=== PATIENT | male | born 1945 | race Caucasian/White ===

== ENCOUNTER 2021-09-02 00:22 | Inpatient (IN) | payer MEDICARE ==
[~2021-09-02] VITALS: Ht 185.4 cm; Wt 82.5 kg
[2021-09-02] VITALS (14 sets, daily range): BP systolic 90–158; BP diastolic 46–83
--- NOTE | 2021-09-02 00:46 | RAD ---
CT HEAD AND C-SPINE WO History: Reason: CODE STROKE, fall, on blood thinner / Spl. Instructions: / History: Comparison: None. Technique: Noncontrast CT imaging was performed of the head and cervical spine. Coronal and sagittal reconstructions were performed. Exposure: One or more of the following individualized dose reduction techniques were utilized for thi s examination: 1. Automated exposure control 2. Adjustment of the mA and/or kV according to patient size 3. Use of iterative reconstruction technique. Findings: Head CT: No intracranial hemorrhage. No mass effect. No hydrocephalus. Mild brain parenchymal volume loss. Moderate foci of decreased attenuation within the hemispheric whi te matter, most often due to chronic microvascular ischemia. Imaged orbits are unremarkable. Imaged paranasal sinuses and mastoid air cells are clear. No acute ca lvarial fracture. Cervical spine CT: Grade 1 anterolisthesis C4 on C5. No acute fracture. Chronic appearing T1 right superior endplate com pression deformity. Moderate degenerative disc changes most prominent C4-C5, C5-C6 and C6-C7. Facet arthropathy. C2-C3 ri ght facet fusion. C1-C2 degenerative changes with posterior pannus formation. Soft tissues unremarkable. Impression: Head CT: 1. No acute intracranial abnormality. 2. Moderate sequelae of chronic microvascular ischemia. Cervical spine CT: 1. No acute fracture or subluxation of the cervical spine. 2. Moderate multilevel cervical spondylosis. FOR INTERNAL CODING PURPOSES Critical result: Findings discussed with Dr. Rich at 09/02/2021 12:39 AM. RESULT CODE: (C) Electronically signed by: Orville Ramirez DO (09/02/2021 12:43 AM) [facility]
[2021-09-02 00:49] LABS: BASO # 0.1 x10^3/uL (0.0-0.2); BASO % 1 % (0-3); EOS # 0.2 x10^3/uL (0.0-0.7); EOS % 4 % (0-3); HEMATOCRIT 27.9 % (39.0-53.0); HEMOGLOBIN 9.5 g/dL (13.0-17.5); LYMPH # 0.6 x10^3/uL (1.0-4.8); LYMPH % 9 % (24-48); MEAN CORPUSCULAR HEMOGLOBIN 32 pg (25-35); MEAN CORPUSCULAR HGB CONC 34 g/dL (31-37); MEAN CORPUSCULAR VOLUME 94 fL (79-100); MONO # 0.5 x10^3/uL (0.0-1.1); MONO % 7 % (0-9); NEUT # 5.3 x10^3/uL (1.8-7.7); NEUT % 79 % (31-73); PLATELET COUNT 209 x10^3/uL (140-400); RED BLOOD COUNT 2.97 x10^6/uL (4.30-5.70); RED CELL DISTRIBUTION WIDTH 14.2 % (11.5-14.5); WHITE BLOOD COUNT 6.7 x10^3/uL (4.0-11.0)
--- NOTE | 2021-09-02 00:51 | EKG ---
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
[2021-09-02 00:59] LABS: CALCIUM 8.7 mg/dL (8.5-10.1); CREATININE 2.7 mg/dL (0.7-1.3); GFR 23.1; POTASSIUM 3.8 mmol/L (3.5-5.1)
[2021-09-02 01:00] LABS: PROTHROMBIN TIME PATIENT 13.5 SEC (11.7-14.0)
[2021-09-02] MEDS ORDERED: IV NORMAL SALINE 500ML BAG 500 ML IV ONE (01:00)
[2021-09-02 01:04] LABS: ALBUMIN 3.3 g/dL (3.4-5.0); MAGNESIUM 2.1 mg/dL (1.8-2.4); TOTAL BILIRUBIN 0.3 mg/dL (0.2-1.0); TOTAL PROTEIN 6.7 g/dL (6.4-8.2)
--- NOTE | 2021-09-02 01:07 | ED.ADGEN ---
General Adult EDM: Chief Complaint: NEURO SYMPTOMS/DEFICITS HPI: HPI: Patient is a 76 year old male coming in from home after a near syncopal episode where patient fell and struck his head. Patient states he felt lightheaded caused him to fall. Denies any chest pain, headaches or other symptoms preceding the event. Per EMS he is slow to respond but will respond to voice and seems weak. Patient has a history significant for being discharged from [facility] 08/1021 (1 day ago) after an DC with stents placed. Patient's records show he is taking clopidogrel and aspirin. Patient was also started on hydralazine and isosorbide dinitrate that he was started this evening. Review of Systems: Review of Systems: All other systems within normal limits except for as noted in the HPI Current Medications: Current Medications Medications (Trade) Dose Ordered Sig/Charles Start Time Stop Time Status Last Admin Dose Admin Acetaminophen (Tylenol) 650 mg PRN Q4HRS PRN 09/02/21 02:30 09/03/21 02:29 Dobutamine HCl/ Dextrose 250 ml @ 4.38 mls/hr 1X ONCE 09/02/21 01:00 09/04/21 10:04 Dopamine HCl/ Dextrose 250 ml @ As Directed STK-MED ONCE 09/02/21 00:38 09/02/21 00:39 DC Fentanyl Citrate (Fentanyl 2ml Vial) 50 mcg PRN Q1HR PRN 09/02/21 02:30 09/03/21 02:29 Ondansetron HCl (Zofran) 4 mg PRN Q8HRS PRN 09/02/21 02:30 09/03/21 02:29 Sodium Chloride 500 ml @ 500 mls/hr 1X ONCE 09/02/21 01:00 09/02/21 01:59 DC Allergies: Allergies: Allergies Coded Allergies Type Severity Reaction Last Updated Verified No Known Drug Allergies 09/02/21 No Physical Exam: PE: Constitutional: Well developed, well nourished, no acute distress, non-toxic appearance. [] HENT: Normocephalic, atraumatic, bilateral external ears normal, nose normal. [] Eyes: PERRLA, conjunctiva normal, no discharge. [] Neck: No rigidity, supple, no stridor. [] Cardiovascular: Regular rate and rhythm, brisk cap refill [] Lungs & Thorax: Non labored symmetric respirations, no tachypnea or respiratory distress [] Abdomen: Soft, nondistended. Skin: Warm, dry, no erythema, no rash. [] Back: Unremarkable Extremities: No deformities, range of motion grossly intact, no lower extremity edema [] Neurologic: Alert and oriented X 3, no focal deficits noted. [] Psychologic: Affect normal, judgement normal, mood normal. [] Current Patient Data: Labs: Laboratory Tests Test 09/02/21 00:30 09/02/21 00:58 White Blood Count 6.7 x10^3/uL (4.0-11.0) Red Blood Count 2.97 x10^6/uL (4.30-5.70) L Hemoglobin 9.5 g/dL (13.0-17.5) L Hematocrit 27.9 % (39.0-53.0) L Mean Corpuscular Volume 94 fL (79-100) Mean Corpuscular Hemoglobin 32 pg (25-35) Mean Corpuscular Hemoglobin Concent 34 g/dL (31-37) Red Cell Distribution Width 14.2 % (11.5-14.5) Platelet Count 209 x10^3/uL (140-400) Neutrophils (%) (Auto) 79 % (31-73) H Lymphocytes (%) (Auto) 9 % (24-48) L Monocytes (%) (Auto) 7 % (0-9) Eosinophils (%) (Auto) 4 % (0-3) H Basophils (%) (Auto) 1 % (0-3) Neutrophils # (Auto) 5.3 x10^3/uL (1.8-7.7) Lymphocytes # (Auto) 0.6 x10^3/uL (1.0-4.8) L Monocytes # (Auto) 0.5 x10^3/uL (0.0-1.1) Eosinophils # (Auto) 0.2 x10^3/uL (0.0-0.7) Basophils # (Auto) 0.1 x10^3/uL (0.0-0.2) Prothrombin Time 13.5 SEC (11.7-14.0) Prothrombin Time INR 1.0 (0.8-1.1) Sodium Level 137 mmol/L (136-145) Potassium Level 3.8 mmol/L (3.5-5.1) Chloride Level 97 mmol/L (98-107) L Carbon Dioxide Level 28 mmol/L (21-32) Anion Gap 12 (6-14) Blood Urea Nitrogen 27 mg/dL (8-26) H Creatinine 2.7 mg/dL (0.7-1.3) H Estimated GFR (Cockcroft-Gault) 23.1 BUN/Creatinine Ratio 10 (6-20) Glucose Level 289 mg/dL (70-99) H Calcium Level 8.7 mg/dL (8.5-10.1) Phosphorus Level 3.0 mg/dL (2.6-4.7) Magnesium Level 2.1 mg/dL (1.8-2.4) Total Bilirubin 0.3 mg/dL (0.2-1.0) Aspartate Amino Transferase (AST) 11 U/L (15-37) L Alanine Aminotransferase (ALT) 19 U/L (16-63) Alkaline Phosphatase 65 U/L (46-116) Troponin I Quantitative 0.024 ng/mL (0.000-0.055) VY-Sva-G-Type Natriuretic Peptide > 69296 pg/mL (0-449) H Total Protein 6.7 g/dL (6.4-8.2) Albumin 3.3 g/dL (3.4-5.0) L Albumin/Globulin Ratio 1.0 (1.0-1.7) SARS-CoV-2 Antigen (Rapid) Negative (NEGATIVE) Laboratory Tests 09/02/21 00:30 Laboratory Tests 09/02/21 00:30 EKG: EK: Heart rate 60 beats minute, intraventricular block, diffuse T wave inversion in precordial lead 0040: Heart rate 60 bpm there is no changes from previous EKG 0053: Heart rate 7 bpm no changes from previous EKG [] Heart Score: C/O Chest Pain: No HEART Score for Chest Pain: HEART Score for Chest Pain Response (Comments) Value History Moderately Suspicious 1 ECG Nonspecific Repolarizatio 1 Age > 65 2 Risk Factors >3 Risk Factors or Hx CAD 2 Troponin >1-<3x Normal Limit 1 Total 7 Risk Factors: Risk Factors: DM, Current or recent (<one month) smoker, HTN, HLP, family history of CAD, obesity. Risk Scores: Score 0 - 3: 2.5% MACE over next 6 weeks - Discharge Home Score 4 - 6: 20.3% MACE over next 6 weeks - Admit for Clinical Observation Score 7 - 10: 72.7% MACE over next 6 weeks - Early Invasive Strategies Radiology/Procedures: Radiology/Procedures: Bedside ultrasound shows thickened myocardial reynoso with decreased squeeze. No pericardial effusion. Valves appear to be functioning normally. Exam limited by ultrasound image quality [address] [id number] IMAGING REPORT Signed PATIENT: CONNIE ABBASI ACCOUNT: [id number] : 1945 LOCATION: ER AGE: 76 SEX: M EXAM STATUS: PRE ER ORD. PHYSICIAN: TACOS BOBO MD REASON: chf PROCEDURE: CHEST AP ONLY XR CHEST 1V History: Reason: chf / Spl. Instructions: / History: Comparison: None. Findings: Mild interstitial thickening. No pleural effusion. No pneumothorax. Right-sided central line with tip projecting over the right atrium. Prior median sternotomy. Enlarged cardiac size. Impression: 1. Mild diffuse interstitial thickening, may relate to chronic interstitial changes although pulmonary edema or infection is possible. Electronically signed by: Orville Ramirez DO (09/02/2021 1:30 AM) [facility] DICTATED and SIGNED BY: ORVILLE RAMIREZ DO DATE: 09/02/21 [id number] [id number] IMAGING REPORT Signed PATIENT: CONNIE ABBASI ACCOUNT: [id number] : 1945 LOCATION: ER AGE: 76 SEX: M EXAM STATUS: PRE ER ORD. PHYSICIAN: TACOS BOBO MD REASON: CODE STROKE, fall, on blood thinner PROCEDURE: CT HEAD AND CERVICAL SPINE WO CT HEAD AND C-SPINE WO History: Reason: CODE STROKE, fall, on blood thinner / Spl. Instructions: / History: Comparison: None. Technique: Noncontrast CT imaging was performed of the head and cervical spine. Coronal and sagittal reconstructions were performed. Exposure: One or more of the following individualized dose reduction techniques were utilized for this examination: 1. Automated exposure control 2. Adjustment of the mA and/or kV according to patient size 3. Use of iterative reconstruction technique. Findings: Head CT: No intracranial hemorrhage. No mass effect. No hydrocephalus. Mild brain parenchymal volume loss. Moderate foci of decreased attenuation wi thin the hemispheric white matter, most often due to chronic microvascular ischemia. Imaged orbits are unremarkable. Imaged paranasal sinuses and mastoid air cells are clear. No acute calvarial fracture. Cervical spine CT: Grade 1 anterolisthesis C4 on C5. No acute fracture. Chronic appearing T1 right superior endplate compression deformity. Moderate degenerative disc changes most prominent C4-C5, C5-C6 and C6-C7. Facet arthropathy. C2-C3 right facet fusion. C1-C2 degenerative changes with posterior pannus formation. Soft tissues unremarkable. Impression: Head CT: 1. No acute intracranial abnormality. 2. Moderate sequelae of chronic microvascular ischemia. Cervical spine CT: 1. No acute fracture or subluxation of the cervical spine. 2. Moderate multilevel cervical spondylosis. FOR INTERNAL CODING PURPOSES Critical result: Findings discussed with Dr. Bobo at 09/02/2021 12:39 AM. RESULT CODE: (C) Electronically signed by: Orville Ramirez DO (09/02/2021 12:43 AM) [facility] DICTATED and SIGNED BY: ORVILLE RAMIREZ DO DATE: 09/02/21 [id number] Impression: Total critical care time: 55 The time involved in the performance of separately reportable/billable procedures was not counted toward critical care time. Due to a high probability of clinically significant, life-threatening deterioration the patient required a high level of care to intervene emergently and I personally spent this critical time directly and personally managing the patient. The critical care time included obtaining a history, examination of the patient, assessment of vital signs, ordering and review of studies, arranging urgent treatment with development of a management plan, evaluation of patient's response to treatment, frequent reassessment, and discussions with other providers and/or family members. Course & Med Decision Making: Course & Med Decision Making Pertinent Labs and Imaging studies reviewed. (See chart for details) Initial CT head negative and c-collar cleared. Patient's blood pressure 70/43. Bedside ultrasound concerning for exacerbation of heart failure and cardiogenic shock especially in setting of recent DC. However patient symptoms could also be due to his recent initiation of hemodialysis and having been dialyzed prior to leaving the hospital in the afternoon, patient took his newly prescribed hydralazine and isosorbide little over an hour prior to the near syncopal episode and fall. Started on dobutamine titrated up to a MAP of greater than 65. Will admit to ICU for further evaluation of heart failure versus overmedication and volume depletion causing hypotension. Patient's mental status improved with blood pressure correction Patient requesting to go to [facility], discussion with the transfer line there are no ICU beds available. Discussed patient staying in his hospital, patient's reluctantly agreed. 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 [] Dragon Disclaimer: Dragon Disclaimer: This electronic medical record was generated, in whole or in part, using a voice recognition dictation system. Departure Departure Impression: Primary Impression: Cardiogenic shock Disposition: ADMITTED INPATIENT Admitting Physician: MARTY Condition: CRITICAL Referrals: JOSÉ MIGUEL CEJA NP (PCP) TACOS BOBO MD Sep 02, 2021 01:07
--- NOTE | 2021-09-02 01:32 | RAD ---
XR CHEST 1V History: Reason: chf / Spl. Instructions: / History: Comparison: None. Findings: Mild interstitial thickening. No pleural effusion. No pneumothorax. Right-sided central line with tip projecting over the right atrium. Prior median sternotomy. Enlarged cardiac size. Impression: 1. Mild diffuse interstitial thickening, may relate to chronic interstitial changes although pulmona ry edema or infection is possible. Electronically signed by: Orville Ramirez DO (09/02/2021 1:30 AM) [facility]
[2021-09-02] MEDS ORDERED: ACETAMINOPHEN 325 MG TABLET. PO PRN (02:30)
[2021-09-02] MEDS ORDERED: ONDANSETRON PF 4 MG/2 ML VIAL. IVP PRN (02:30)
[2021-09-02] MEDS ORDERED: fentaNYL PF VIAL 100 MCG/2 ML VIAL IVP PRN (02:30)
--- NOTE | 2021-09-02 04:08 | EKG ---
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
--- NOTE | 2021-09-02 04:09 | EKG ---
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
--- NOTE | 2021-09-02 04:18 | NUR ---
admitt- cardiogenic shock- past just discharged from [facility] on Wednesday-- [place]/P [place] with Stents. new onset of renal failure. started dialysis on . patient was at home felt dizzy. Fell hit head. CT neg. BP low dobutamine started Unable to complete admission. Patient very drowsy. Unable to answer questions
[2021-09-02] MEDS ORDERED: HYDR-2868 PO (04:30)
[2021-09-02] MEDS ORDERED: ISOS10TA2 PO (04:30)
[2021-09-02] MEDS ORDERED: CARV3.123 PO (04:30)
[2021-09-02] MEDS ORDERED: CARV6.253 PO (04:30)
[2021-09-02] MEDS ORDERED: CARV12.53 PO (04:30)
[2021-09-02] MEDS ORDERED: FURO20TA3 PO (04:30)
[2021-09-02] MEDS ORDERED: ASPI-630 PO (04:32)
[2021-09-02] MEDS ORDERED: ATOR40TA59 PO (04:35)
[2021-09-02] MEDS ORDERED: OXYB5TAB10 PO (04:35)
[2021-09-02] MEDS ORDERED: BUME1TAB3 PO (08:36)
[2021-09-02] MEDS ORDERED: CLOP75TA57 PO (08:36)
[2021-09-02] MEDS ORDERED: CARVEDILOL 3.125 MG TABLET. PO SCH (09:00)
[2021-09-02] MEDS ORDERED: hydrALAZINE 25 MG TABLET PO SCH (09:00)
[2021-09-02] MEDS ORDERED: ISOSORBIDE DINITRATE 10 MG TABLET. PO SCH (09:00)
--- NOTE | 2021-09-02 09:17 | PDOC2 ---
DIANNA CHAPA JUSTOWRITER OPERATOR 09/02/21 0917: CARDIAC CONSULT DATE OF CONSULT Date of Consult DATE: 09/02/21 TIME: 09:13 REASON FOR CONSULT Reason for Consult: cardiogenic shock REFERRING PHYSICIAN Referring Physician: Dr. Rich SOURCE Source: Chart review, Patient HISTORY OF PRESENT ILLNESS HISTORY OF PRESENT ILLNESS This is a 76 yo male who presented secondary to near syncopal episode. Patient has been in and out of [facility] since August 14. Was initially discharged following PCI/stent placement and renal failure requiring initiation of HD, but then returned due to shortness of breath, CHF. Fluid was offloaded with HD. Patient was discharge home yesterday afternoon following HD. Last night, he was sitting in his chair watching television. He got up to ambulate to the bathroom and began feeling lightheaded and subsequently fell striking his head. There was no LOC. EMS was called. Blood pressure noted to be low. Dobutamine infusion was initiated in the ED. Patient follows closely with Dr. Coker at [facility]. Transfer team was contacted, but no beds were available for transfer. was reluctant for admission to the hospital, but eventually agreed. Dr. Beach contacted Dr. Coker. Patient recently noted with severs cardiomyopathy with an EF of 20-25% and new LBBB. He underwent PCI/stent placement 08/20/[address] Coker. He has had difficulty tolerated optimized medic al therapy due to hypotension and recent initiation of hemodialysis. PAST MEDICAL HISTORY Cardiovascular: CAD, CHF, HTN, Hyperlipidemia, Other (LBBB) GI: GERD Musculoskeletal: Osteoarthritis Renal/: Chronic renal failure Endocrine: Diabetes PAST SURGICAL HISTORY Past Surgical History: CABG FAMILY HISTORY Family History: Heart Disease, Hypertension SOCIAL HISTORY Smoke: No ALCOHOL: none Drugs: None Lives: with Family CURRENT MEDICATIONS CURRENT MEDICATIONS Current Medications Medications (Trade) Dose Ordered Sig/Charles Route PRN Reason Start Time Stop Time Status Last Admin Dose Admin Dobutamine HCl/ Dextrose 250 ml @ 4.38 mls/hr 1X ONCE IV 09/02/21 01:00 09/04/21 10:04 09/02/21 00:51 Sodium Chloride 500 ml @ 500 mls/hr 1X ONCE IV 09/02/21 01:00 09/02/21 01:59 DC 09/02/21 00:30 ALLERGIES ALLERGIES: Coded Allergies: hydrocodone (Verified Allergy, Intermediate, 09/02/21) oxycodone (Verified Allergy, Intermediate, 09/02/21) ROS Review of System 14 point ROS conducted with pertinent positives noted above in HPI PHYSICAL EXAM General: Alert, Oriented X3, Cooperative, No acute distress HEENT: Atraumatic, Mucous membr. moist/pink Lungs: Other (CTA ) Heart: Regular rate, Other (LBBB) Abdomen: Soft, No tenderness Extremities: No edema, Normal pulses Skin: No significant lesion Neuro: Normal speech, Sensation intact, Other (forgetful ) Psych/Mental Status: Mental status NL, Mood NL MUSCULOSKELETAL: Osteoarthritic changes both hands VITALS/I&O VITALS/I&O: Vital Signs Date Time Temp Pulse Resp B/P (MAP) Pulse Ox O2 Delivery O2 Flow Rate FiO2 09/02/21 08:00 Room Air 09/02/21 08:00 97.9 72 22 135/65 100 97.9 I & O 09/01/21 09/01/21 09/02/21 15:00 23:00 07:00 Intake Total 500 ml Output Total 0 ml Balance 500 ml LABS Lab: Laboratory Tests Test 09/02/21 00:30 09/02/21 00:58 09/02/21 05:50 White Blood Count 6.7 x10^3/uL (4.0-11.0) Red Blood Count 2.97 x10^6/uL (4.30-5.70) L Hemoglobin 9.5 g/dL (13.0-17.5) L Hematocrit 27.9 % (39.0-53.0) L Mean Corpuscular Volume 94 fL (79-100) Mean Corpuscular Hemoglobin 32 pg (25-35) Mean Corpuscular Hemoglobin Concent 34 g/dL (31-37) Red Cell Distribution Width 14.2 % (11.5-14.5) Platelet Count 209 x10^3/uL (140-400) Neutrophils (%) (Auto) 79 % (31-73) H Lymphocytes (%) (Auto) 9 % (24-48) L Monocytes (%) (Auto) 7 % (0-9) Eosinophils (%) (Auto) 4 % (0-3) H Basophils (%) (Auto) 1 % (0-3) Neutrophils # (Auto) 5.3 x10^3/uL (1.8-7.7) Lymphocytes # (Auto) 0.6 x10^3/uL (1.0-4.8) L Monocytes # (Auto) 0.5 x10^3/uL (0.0-1.1) Eosinophils # (Auto) 0.2 x10^3/uL (0.0-0.7) Basophils # (Auto) 0.1 x10^3/uL (0.0-0.2) Prothrombin Time 13.5 SEC (11.7-14.0) Prothrombin Time INR 1.0 (0.8-1.1) Sodium Level 137 mmol/L (136-145) Potassium Level 3.8 mmol/L (3.5-5.1) Chloride Level 97 mmol/L (98-107) L Carbon Dioxide Level 28 mmol/L (21-32) Anion Gap 12 (6-14) Blood Urea Nitrogen 27 mg/dL (8-26) H Creatinine 2.7 mg/dL (0.7-1.3) H Estimated GFR (Cockcroft-Gault) 23.1 BUN/Creatinine Ratio 10 (6-20) Glucose Level 289 mg/dL (70-99) H Calcium Level 8.7 mg/dL (8.5-10.1) Phosphorus Level 3.0 mg/dL (2.6-4.7) Magnesium Level 2.1 mg/dL (1.8-2.4) Total Bilirubin 0.3 mg/dL (0.2-1.0) Aspartate Amino Transferase (AST) 11 U/L (15-37) L Alanine Aminotransferase (ALT) 19 U/L (16-63) Alkaline Phosphatase 65 U/L (46-116) Troponin I Quantitative 0.024 ng/mL (0.000-0.055) 0.017 ng/mL (0.000-0.055) MT-Lei-B-Type Natriuretic Peptide > 13217 pg/mL (0-449) H Total Protein 6.7 g/dL (6.4-8.2) Albumin 3.3 g/dL (3.4-5.0) L Albumin/Globulin Ratio 1.0 (1.0-1.7) SARS-CoV-2 Antigen (Rapid) Negative (NEGATIVE) Lactic Acid Level 0.8 mmol/L (0.4-2.0) Laboratory Tests 09/02/21 00:30 Laboratory Tests 09/02/21 00:30 ASSESSMENT/PLAN ASSESSMENT/PLAN 1. Near syncope; most probably secondary to hypotension 2. Hypotension; now adequate. On dobutamine. antiHTN held 3. CAD s/p CABG 2016 and PCI/stent 2 weeks ago at [facility]. Follows with Dr. Coker 4. Acute on chronic systolic CHF; appears compensated 5. Cardiomyopathy; LVEF reportedly 20-25% 6. Hyperlipidemia; statin 7. Diabetes, II 8. ESRD recently initiated on HD 9. LBBB Recommendations Resume secondary prevention Discontinue Coreg, hydralazine, and Imdur. Titrate off Dobutamine as blood pressure is now adequate Start low Toprol for HF optimization as BP allows Will arranged for LifeVest for prevention of SCD Outpatient echo to reassess LVEF and need for AICD implantation for primary prevention CASPER BEACH MD 09/03/21 1546: CARDIAC CONSULT ASSESSMENT/PLAN ASSESSMENT/PLAN Late entry for 09/02/2021 Patient seen and examined. Agree with above nurse practitioner note. Case discussed with outside [employer] team member DIANNA CHAPA APRN Sep 02, 2021 09:17 CASPER BEACH MD Sep 03, 2021 15:46
--- NOTE | 2021-09-02 10:21 | PDOC1 ---
History and Physical Date of Admission Date of Admission DATE: 09/02/21 TIME: 10:14 Source Source: Chart review, Patient History of Present Illness History of Present Illness MR. Flores, is a 76 year old male, recent DC from [facility]. Was treated for acute CAD, [place], and started on dialysis. He was also started on New BP meds, started on IMdur and coreg dose increased. Stents were placed Last night, he was very weak, pre-syncopal, asked his for help with trying to ambualte, and could not, he then worsened and had a near syncopal episode, fell and struck his head. Denies any chest pain, headaches or other symptoms preceding the event. Prior chest pain from [place] is not present, his back hurt from falling, and it is better today. Patient's records show he is taking clopidogrel and aspirin. Past Medical History Cardiovascular: CAD, HTN, Hyperlipidemia Psych: No pertinent hx Renal/: Chronic renal failure Endocrine: Diabetes Past Surgical History Past Surgical History: CABG Family History Family History: Coronary Artery Disease, Other Social History Smoke: Quit ALCOHOL: none Current Problem List Problem List Problems Medical Problems: (1) Cardiogenic shock Status: Acute Current Medications Current Medications Current Medications Dopamine HCl/ Dextrose 250 ml @ As Directed STK-MED ONCE IV ; Start 09/02/21 at 00:38; Stop 09/02/21 at 00:39; Status DC Dobutamine HCl/ Dextrose 250 ml @ 4.38 mls/hr 1X ONCE IV Last administered on 09/02/21at 00:51; Start 09/02/21 at 01:00; Stop 09/04/21 at 10:04 Sodium Chloride 500 ml @ 500 mls/hr 1X ONCE IV Last administered on 09/02/21at 00:30; Start 09/02/21 at 01:00; Stop 09/02/21 at 01:59; Status DC Ondansetron HCl (Zofran) 4 mg PRN Q8HRS PRN IVP NAUSEA/VOMITING 1st choice; Start 09/02/21 at 02:30; Stop 09/03/21 at 02:29 Fentanyl Citrate (Fentanyl 2ml Vial) 50 mcg PRN Q1HR PRN IVP SEVERE PAIN 7-10; Start 09/02/21 at 02:30; Stop 09/03/21 at 02:29 Acetaminophen (Tylenol) 650 mg PRN Q4HRS PRN PO FEVER > 100.3'F; Start 09/02/21 at 02:30; Stop 09/03/21 at 02:29 Aspirin (Aspirin Chewable) 81 mg DAILY PO ; Start 09/02/21 at 09:00 Atorvastatin Calcium (Lipitor) 40 mg DAILY PO ; Start 09/02/21 at 09:00 Carvedilol (Coreg) 3.125 mg BID PO ; Start 09/02/21 at 09:00; Stop 09/02/21 at 09:18; Status DC Hydralazine HCl (Apresoline) 25 mg TID PO ; Start 09/02/21 at 09:00; Stop 09/02/21 at 09:18; Status DC Isosorbide Dinitrate (Isordil) 10 mg [id number] PO ; Start 09/02/21 at 09:00; Stop 09/02/21 at 09:18; Status DC Oxybutynin Chloride (Ditropan) 5 mg BID PO ; Start 09/02/21 at 09:00 Active Scripts Active Reported Bumetanide 1 Mg Tablet 1 Mg PO BID Plavix (Clopidogrel Bisulfate) 75 Mg Tablet 75 Mg PO DAILY Atorvastatin Calcium 40 Mg Tablet 1 Tab PO DAILY Oxybutynin Chloride 5 Mg Tablet 1 Tab PO BID Aspirin 81 Mg Tab.chew 1 Tab PO DAILY Isosorbide Dinitrate 10 Mg Tablet 1 Tab PO TID Hydralazine Hcl 25 Mg Tablet 1 Tab PO TID Carvedilol 12.5 Mg Tablet 1 Tab PO BID Allergies Allergies: Uncoded Allergies: UNABLE TO OBTAIN (Allergy, Unknown, 09/02/21) ROS General: YES: Chills, Fatigue, Malaise PSYCHOLOGICAL ROS: YES: Disorientation; No: Anxiety, Behavioral Disorder, Concentration difficultie, Decreased libido, Depression, Hallucinations, Hostility, Irritablity, Memory difficulties, Mood Swings, Obsessive thoughts, Physical abuse, Sexual abuse, Sleep disturbances, Suicidal ideation, Other Eyes: No Blurry vision, No Decreased vision, No Double vision, No Dry eyes, No Excessive tearing, No Eye Pain, No Itchy Eyes, No Loss of vision, No Photophobia, No Scotomata, No Uses contacts, No Uses glasses, No Other HEENT: No: Heacaches, Visual Changes, Hearing change, Nasal congestion, Nasal discharge, Oral lesions, Sinus pain, Sore Throat, Epistaxis, Sneezing, Snoring, Tinnitus, Vertigo, Vocal changes, Other Respiratory: No: Cough, Hemoptysis, Orthopnea, Pleuritic Pain, Shortness of breath, SOB with excertion, Sputum Changes, Stridor, Tachypnea, Wheezing, Other Cardiovascular: No Chest Pain, No Palpitations, No Orthopnea, No Paroxysmal Noc. Dyspnea, No Edema, No Lt Headedness, No Other Gastrointestinal: Yes Nausea Genitourinary: No Dysuria, No Frequency, No Incontinence, No Hematuria, No Retention, No Discharge, No Urgency, No Pain, No Flank Pain, No Other, No , No , No , No , No , No , No Musculoskeletal: Yes Gait Disturbance Neurological: Yes Dizziness, Yes Gait Disturbance, Yes Impaired Coord/balance; No Behavorial Changes, No Bowel/Bladder ControlChng, No Confusion, No Headaches, No Memory Loss, No Numbness/Tingling, No Seizures, No Speech Problems, No Tremors, No Visual Changes, No Weakness, No Other Skin: No Dry Skin, No Eczema, No Hair Changes, No Lumps, No Mole Changes, No Mottling, No Nail Changes, No Pruritus, No Rash, No Skin Lesion Changes, No Othe r, No Acne Physical Exam General: Alert, Oriented X3, No acute distress HEENT: Mucous membr. moist/pink Lungs: Clear to auscultation Heart: S1S2, RRR, no gallops, no murmurs Abdomen: Soft Extremities: No edema Skin: No significant lesion Neuro: Normal speech, Normal tone Psych/Mental Status: Mood NL Vitals Vitals Vital Signs Date Time Temp Pulse Resp B/P (MAP) Pulse Ox O2 Delivery O2 Flow Rate FiO2 09/02/21 09:00 78 13 121/57 100 Room Air 09/02/21 08:00 97.9 97.9 Labs Labs Laboratory Tests Test 09/02/21 00:30 09/02/21 00:58 09/02/21 05:50 09/02/21 08:55 White Blood Count 6.7 x10^3/uL (4.0-11.0) Red Blood Count 2.97 x10^6/uL (4.30-5.70) Hemoglobin 9.5 g/dL (13.0-17.5) Hematocrit 27.9 % (39.0-53.0) Mean Corpuscular Volume 94 fL (79-100) Mean Corpuscular Hemoglobin 32 pg (25-35) Mean Corpuscular Hemoglobin Concent 34 g/dL (31-37) Red Cell Distribution Width 14.2 % (11.5-14.5) Platelet Count 209 x10^3/uL (140-400) Neutrophils (%) (Auto) 79 % (31-73) Lymphocytes (%) (Auto) 9 % (24-48) Monocytes (%) (Auto) 7 % (0-9) Eosinophils (%) (Auto) 4 % (0-3) Basophils (%) (Auto) 1 % (0-3) Neutrophils # (Auto) 5.3 x10^3/uL (1.8-7.7) Lymphocytes # (Auto) 0.6 x10^3/uL (1.0-4.8) Monocytes # (Auto) 0.5 x10^3/uL (0.0-1.1) Eosinophils # (Auto) 0.2 x10^3/uL (0.0-0.7) Basophils # (Auto) 0.1 x10^3/uL (0.0-0.2) Prothrombin Time 13.5 SEC (11.7-14.0) Prothromb Time International Ratio 1.0 (0.8-1.1) Sodium Level 137 mmol/L (136-145) Potassium Level 3.8 mmol/L (3.5-5.1) Chloride Level 97 mmol/L (98-107) Carbon Dioxide Level 28 mmol/L (21-32) Anion Gap 12 (6-14) Blood Urea Nitrogen 27 mg/dL (8-26) Creatinine 2.7 mg/dL (0.7-1.3) Estimated GFR (Cockcroft-Gault) 23.1 BUN/Creatinine Ratio 10 (6-20) Glucose Level 289 mg/dL (70-99) Calcium Level 8.7 mg/dL (8.5-10.1) Phosphorus Level 3.0 mg/dL (2.6-4.7) Magnesium Level 2.1 mg/dL (1.8-2.4) Total Bilirubin 0.3 mg/dL (0.2-1.0) Aspartate Amino Transf (AST/SGOT) 11 U/L (15-37) Alanine Aminotransferase (ALT/SGPT) 19 U/L (16-63) Alkaline Phosphatase 65 U/L (46-116) Troponin I Quantitative 0.024 ng/mL (0.000-0.055) 0.017 ng/mL (0.000-0.055) 0.017 ng/mL (0.000-0.055) BY-Pvd-X-Type Natriuretic Peptide > 20775 pg/mL (0-449) Total Protein 6.7 g/dL (6.4-8.2) Albumin 3.3 g/dL (3.4-5.0) Albumin/Globulin Ratio 1.0 (1.0-1.7) SARS-CoV-2 Antigen (Rapid) Negative (NEGATIVE) Lactic Acid Level 0.8 mmol/L (0.4-2.0) Laboratory Tests Test 09/02/21 00:30 09/02/21 00:58 09/02/21 05:50 09/02/21 08:55 White Blood Count 6.7 x10^3/uL (4.0-11.0) Red Blood Count 2.97 x10^6/uL (4.30-5.70) Hemoglobin 9.5 g/dL (13.0-17.5) Hematocrit 27.9 % (39.0-53.0) Mean Corpuscular Volume 94 fL (79-100) Mean Corpuscular Hemoglobin 32 pg (25-35) Mean Corpuscular Hemoglobin Concent 34 g/dL (31-37) Red Cell Distribution Width 14.2 % (11.5-14.5) Platelet Count 209 x10^3/uL (140-400) Neutrophils (%) (Auto) 79 % (31-73) Lymphocytes (%) (Auto) 9 % (24-48) Monocytes (%) (Auto) 7 % (0-9) Eosinophils (%) (Auto) 4 % (0-3) Basophils (%) (Auto) 1 % (0-3) Neutrophils # (Auto) 5.3 x10^3/uL (1.8-7.7) Lymphocytes # (Auto) 0.6 x10^3/uL (1.0-4.8) Monocytes # (Auto) 0.5 x10^3/uL (0.0-1.1) Eosinophils # (Auto) 0.2 x10^3/uL (0.0-0.7) Basophils # (Auto) 0.1 x10^3/uL (0.0-0.2) Prothrombin Time 13.5 SEC (11.7-14.0) Prothromb Time International Ratio 1.0 (0.8-1.1) Sodium Level 137 mmol/L (136-145) Potassium Level 3.8 mmol/L (3.5-5.1) Chloride Level 97 mmol/L (98-107) Carbon Dioxide Level 28 mmol/L (21-32) Anion Gap 12 (6-14) Blood Urea Nitrogen 27 mg/dL (8-26) Creatinine 2.7 mg/dL (0.7-1.3) Estimated GFR (Cockcroft-Gault) 23.1 BUN/Creatinine Ratio 10 (6-20) Glucose Level 289 mg/dL (70-99) Calcium Level 8.7 mg/dL (8.5-10.1) Phosphorus Level 3.0 mg/dL (2.6-4.7) Magnesium Level 2.1 mg/dL (1.8-2.4) Total Bilirubin 0.3 mg/dL (0.2-1.0) Aspartate Amino Transf (AST/SGOT) 11 U/L (15-37) Alanine Aminotransferase (ALT/SGPT) 19 U/L (16-63) Alkaline Phosphatase 65 U/L (46-116) Troponin I Quantitative 0.024 ng/mL (0.000-0.055) 0.017 ng/mL (0.000-0.055) 0.017 ng/mL (0.000-0.055) OX-Ktj-F-Type Natriuretic Peptide > 98007 pg/mL (0-449) Total Protein 6.7 g/dL (6.4-8.2) Albumin 3.3 g/dL (3.4-5.0) Albumin/Globulin Ratio 1.0 (1.0-1.7) SARS-CoV-2 Antigen (Rapid) Negative (NEGATIVE) Lactic Acid Level 0.8 mmol/L (0.4-2.0) VTE Prophylaxis Ordered VTE Prophylaxis Devices: No VTE Pharmacological Prophylaxi: Yes Assessment/Plan Assessment/Plan syncope symptomatic hypotension, on dobutamine CAD, recent [place], recent admit to [facility] probably over-medicated, will dial back, CV consult to help manage, 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
--- NOTE | 2021-09-02 10:31 | PDOC2 ---
CONSULT Date of Consult Date of Consult DATE: 09/02/21 TIME: 10:24 Reason for Consult Reason for Consult: RENAL FAILURE Referring Physician Referring Physician: HARMEET Identification/Chief Complaint Chief Complaint THIS IS A 76 YR OLD WITH SYNCOPE. WAS JUST DISCHARGED FROM [facility] AFTER AN NH AND PTCA/STENT. WAS STARTED ON HD AT THAT TIME. FELT TO BE [facility]. HE HAS A TDC IN HIS RIGHT IJ FOR THIS. WENT TO OP HD JUST THRICE. LAST HD WAS YESTERDAY. ON ADMIT HE WAS VERY HYPOTENSIVE WITH SBP LESS THAN 80. CURRENTLY IN THE ICU AND VITALS ARE STABLE. HE COMPLAINS OF FEELING VERY WEAK AND TIRED. ABLE TO EMPTY BLADDER WELL. HAS SOME NOCTURIA AND FREQUENCY. NO OTHER HX REPORTED BY PT. Source Source: Caregiver, Chart review History of Present Illness Reason for Visit: ABOVE Past Medical History Cardiovascular: CAD, HTN, Hyperlipidemia Psych: No pertinent hx Renal/: Acute renal failure, Chronic renal failure Endocrine: Diabetes Past Surgical History Past Surgical History RIGHT IJ TDC. Past Surgical History: CABG Family History Family History: Coronary Artery Disease, Other Social History Quit ALCOHOL: none Lives: with Family Current Problem List Problem List Problems Medical Problems: (1) Cardiogenic shock Status: Acute Current Medications Current Medications Current Medications Dopamine HCl/ Dextrose 250 ml @ As Directed STK-MED ONCE IV ; Start 09/02/21 at 00:38; Stop 09/02/21 at 00:39; Status DC Dobutamine HCl/ Dextrose 250 ml @ 4.38 mls/hr 1X ONCE IV Last administered on 09/02/21at 00:51; Start 09/02/21 at 01:00; Stop 09/04/21 at 10:04 Sodium Chloride 500 ml @ 500 mls/hr 1X ONCE IV Last administered on 09/02/21at 00:30; Start 09/02/21 at 01:00; Stop 09/02/21 at 01:59; Status DC Ondansetron HCl (Zofran) 4 mg PRN Q8HRS PRN IVP NAUSEA/VOMITING 1st choice; Start 09/02/21 at 02:30; Stop 09/03/21 at 02:29 Fentanyl Citrate (Fentanyl 2ml Vial) 50 mcg PRN Q1HR PRN IVP SEVERE PAIN 7-10; Start 09/02/21 at 02:30; Stop 09/03/21 at 02:29 Acetaminophen (Tylenol) 650 mg PRN Q4HRS PRN PO FEVER > 100.3'F; Start 09/02/21 at 02:30; Stop 09/03/21 at 02:29 Aspirin (Aspirin Chewable) 81 mg DAILY PO ; Start 09/02/21 at 09:00 Atorvastatin Calcium (Lipitor) 40 mg DAILY PO ; Start 09/02/21 at 09:00 Carvedilol (Coreg) 3.125 mg BID PO ; Start 09/02/21 at 09:00; Stop 09/02/21 at 09:18; Status DC Hydralazine HCl (Apresoline) 25 mg TID PO ; Start 09/02/21 at 09:00; Stop 09/02/21 at 09:18; Status DC Isosorbide Dinitrate (Isordil) 10 mg [id number] PO ; Start 09/02/21 at 09:00; Stop 09/02/21 at 09:18; Status DC Oxybutynin Chloride (Ditropan) 5 mg BID PO ; Start 09/02/21 at 09:00 Clopidogrel Bisulfate (Plavix) 75 mg [id number] PO ; Start 09/02/21 at 10:30 Enoxaparin Sodium (Lovenox Per Pharmacy Prophylaxis Dosing) 1 each PRN DAILY PRN MC SEE COMMENTS; Start 09/02/21 at 10:30 Enoxaparin Sodium (Lovenox 30mg Syringe) 30 mg DAILY SQ ; Start 09/02/21 at 11:00 Active Scripts Active Reported Bumetanide 1 Mg Tablet 1 Mg PO BID Plavix (Clopidogrel Bisulfate) 75 Mg Tablet 75 Mg PO DAILY Atorvastatin Calcium 40 Mg Tablet 1 Tab PO DAILY Oxybutynin Chloride 5 Mg Tablet 1 Tab PO BID Aspirin 81 Mg Tab.chew 1 Tab PO DAILY Isosorbide Dinitrate 10 Mg Tablet 1 Tab PO TID Hydralazine Hcl 25 Mg Tablet 1 Tab PO TID Carvedilol 12.5 Mg Tablet 1 Tab PO BID Allergies Allergies: Uncoded Allergies: UNABLE TO OBTAIN (Allergy, Unknown, 09/02/21) ROS General: YES: Fatigue, Malaise, Appetite PSYCHOLOGICAL ROS: YES: Anxiety, Depression Eyes: Yes Decreased vision HEENT: YES: Heacaches ALLERGY AND IMMUNOLOGY: YES: Seasonal Allergies Respiratory: YES: Cough Cardiovascular: yes Lt Headedness Gastrointestinal: Yes Constipation Genitourinary: YES Frequency Musculoskeletal: Yes Joint Stiffness, Yes Muscular Weakness Neurological: Yes Dizziness, Yes Weakness Skin: Yes Dry Skin Physical Exam General: Alert, Oriented X3, Cooperative, No acute distress HEENT: Atraumatic, PERRLA Lungs: Clear to auscultation Heart: Regular rate, Normal S1, Normal S2 Abdomen: Normal bowel sounds, Soft, No tenderness Extremities: No clubbing Skin: No rashes Neuro: Normal speech, Normal tone Psych/Mental Status: Mental status NL MUSCULOSKELETAL: No joint tenderness, No deformity, No swelling Vitals VITALS Vital Signs Date Time Temp Pulse Resp B/P (MAP) Pulse Ox O2 Delivery O2 Flow Rate FiO2 09/02/21 10:00 78 13 120/61 100 Room Air 09/02/21 08:00 97.9 97.9 Labs Labs Laboratory Tests Test 09/02/21 00:30 09/02/21 00:58 09/02/21 05:50 09/02/21 08:55 White Blood Count 6.7 x10^3/uL (4.0-11.0) Red Blood Count 2.97 x10^6/uL (4.30-5.70) Hemoglobin 9.5 g/dL (13.0-17.5) Hematocrit 27.9 % (39.0-53.0) Mean Corpuscular Volume 94 fL (79-100) Mean Corpuscular Hemoglobin 32 pg (25-35) Mean Corpuscular Hemoglobin Concent 34 g/dL (31-37) Red Cell Distribution Width 14.2 % (11.5-14.5) Platelet Count 209 x10^3/uL (140-400) Neutrophils (%) (Auto) 79 % (31-73) Lymphocytes (%) (Auto) 9 % (24-48) Monocytes (%) (Auto) 7 % (0-9) Eosinophils (%) (Auto) 4 % (0-3) Basophils (%) (Auto) 1 % (0-3) Neutrophils # (Auto) 5.3 x10^3/uL (1.8-7.7) Lymphocytes # (Auto) 0.6 x10^3/uL (1.0-4.8) Monocytes # (Auto) 0.5 x10^3/uL (0.0-1.1) Eosinophils # (Auto) 0.2 x10^3/uL (0.0-0.7) Basophils # (Auto) 0.1 x10^3/uL (0.0-0.2) Prothrombin Time 13.5 SEC (11.7-14.0) Prothromb Time International Ratio 1.0 (0.8-1.1) Sodium Level 137 mmol/L (136-145) Potassium Level 3.8 mmol/L (3.5-5.1) Chloride Level 97 mmol/L (98-107) Carbon Dioxide Level 28 mmol/L (21-32) Anion Gap 12 (6-14) Blood Urea Nitrogen 27 mg/dL (8-26) Creatinine 2.7 mg/dL (0.7-1.3) Estimated GFR (Cockcroft-Gault) 23.1 BUN/Creatinine Ratio 10 (6-20) Glucose Level 289 mg/dL (70-99) Calcium Level 8.7 mg/dL (8.5-10.1) Phosphorus Level 3.0 mg/dL (2.6-4.7) Magnesium Level 2.1 mg/dL (1.8-2.4) Total Bilirubin 0.3 mg/dL (0.2-1.0) Aspartate Amino Transf (AST/SGOT) 11 U/L (15-37) Alanine Aminotransferase (ALT/SGPT) 19 U/L (16-63) Alkaline Phosphatase 65 U/L (46-116) Troponin I Quantitative 0.024 ng/mL (0.000-0.055) 0.017 ng/mL (0.000-0.055) 0.017 ng/mL (0.000-0.055) NW-Whu-W-Type Natriuretic Peptide > 99386 pg/mL (0-449) Total Protein 6.7 g/dL (6.4-8.2) Albumin 3.3 g/dL (3.4-5.0) Albumin/Globulin Ratio 1.0 (1.0-1.7) SARS-CoV-2 Antigen (Rapid) Negative (NEGATIVE) Lactic Acid Level 0.8 mmol/L (0.4-2.0) Laboratory Tests Test 09/02/21 00:30 09/02/21 00:58 09/02/21 05:50 09/02/21 08:55 White Blood Count 6.7 x10^3/uL (4.0-11.0) Red Blood Count 2.97 x10^6/uL (4.30-5.70) Hemoglobin 9.5 g/dL (13.0-17.5) Hematocrit 27.9 % (39.0-53.0) Mean Corpuscular Volume 94 fL (79-100) Mean Corpuscular Hemoglobin 32 pg (25-35) Mean Corpuscular Hemoglobin Concent 34 g/dL (31-37) Red Cell Distribution Width 14.2 % (11.5-14.5) Platelet Count 209 x10^3/uL (140-400) Neutrophils (%) (Auto) 79 % (31-73) Lymphocytes (%) (Auto) 9 % (24-48) Monocytes (%) (Auto) 7 % (0-9) Eosinophils (%) (Auto) 4 % (0-3) Basophils (%) (Auto) 1 % (0-3) Neutrophils # (Auto) 5.3 x10^3/uL (1.8-7.7) Lymphocytes # (Auto) 0.6 x10^3/uL (1.0-4.8) Monocytes # (Auto) 0.5 x10^3/uL (0.0-1.1) Eosinophils # (Auto) 0.2 x10^3/uL (0.0-0.7) Basophils # (Auto) 0.1 x10^3/uL (0.0-0.2) Prothrombin Time 13.5 SEC (11.7-14.0) Prothromb Time International Ratio 1.0 (0.8-1.1) Sodium Level 137 mmol/L (136-145) Potassium Level 3.8 mmol/L (3.5-5.1) Chloride Level 97 mmol/L (98-107) Carbon Dioxide Level 28 mmol/L (21-32) Anion Gap 12 (6-14) Blood Urea Nitrogen 27 mg/dL (8-26) Creatinine 2.7 mg/dL (0.7-1.3) Estimated GFR (Cockcroft-Gault) 23.1 BUN/Creatinine Ratio 10 (6-20) Glucose Level 289 mg/dL (70-99) Calcium Level 8.7 mg/dL (8.5-10.1) Phosphorus Level 3.0 mg/dL (2.6-4.7) Magnesium Level 2.1 mg/dL (1.8-2.4) Total Bilirubin 0.3 mg/dL (0.2-1.0) Aspartate Amino Transf (AST/SGOT) 11 U/L (15-37) Alanine Aminotransferase (ALT/SGPT) 19 U/L (16-63) Alkaline Phosphatase 65 U/L (46-116) Troponin I Quantitative 0.024 ng/mL (0.000-0.055) 0.017 ng/mL (0.000-0.055) 0.017 ng/mL (0.000-0.055) NK-Fdh-G-Type Natriuretic Peptide > 13793 pg/mL (0-449) Total Protein 6.7 g/dL (6.4-8.2) Albumin 3.3 g/dL (3.4-5.0) Albumin/Globulin Ratio 1.0 (1.0-1.7) SARS-CoV-2 Antigen (Rapid) Negative (NEGATIVE) Lactic Acid Level 0.8 mmol/L (0.4-2.0) Images Images XR CHEST 1V History: Reason: chf / Spl. Instructions: / History: Comparison: None. Findings: Mild interstitial thickening. No pleural effusion. No pneumothorax. Right-sided central line with tip projecting over the right atrium. Prior median sternotomy. Enlarged cardiac size. Impression: 1. Mild diffuse interstitial thickening, may relate to chronic interstitial changes although pulmonary edema or infection is possible. Electronically signed by: Orville Ramirez DO (09/02/2021 1:30 AM) [facility] CT HEAD AND C-SPINE WO History: Reason: CODE STROKE, fall, on blood thinner / Spl. Instructions: / History: Comparison: None. Technique: Noncontrast CT imaging was performed of the head and cervical spine. Coronal and sagittal reconstructions were performed. Exposure: One or more of the following individualized dose reduction techniques were utilized for this examination: 1. Automated exposure control 2. Adjustment of the mA and/or kV according to patient size 3. Use of iterative reconstruction technique. Findings: Head CT: No intracranial hemorrhage. No mass effect. No hydrocephalus. Mild brain parenchymal volume loss. Moderate foci of decreased attenuation within the hemispheric white matter, most often due to chronic microvascular ischemia. Imaged orbits are unremarkable. Imaged paranasal sinuses and mastoid air cells are clear. No acute calvarial fracture. Cervical spine CT: Grade 1 anterolisthesis C4 on C5. No acute fracture. Chronic appearing T1 right superior endplate compression deformity. Moderate degenerative disc changes most prominent C4-C5, C5-C6 and C6-C7. Facet arthropathy. C2-C3 right facet fusion. C1-C2 degenerative changes with posterior pannus formation. Soft tissues unremarkable. Impression: Head CT: 1. No acute intracranial abnormality. 2. Moderate sequelae of chronic microvascular ischemia. Cervical spine CT: 1. No acute fracture or subluxation of the cervical spine. 2. Moderate multilevel cervical spondylosis. Assessment/Plan Assessment/Plan IMP [facility]-ATN-ON HD MWF VIA RIGHT IJ TDC SYNCOPE HYPOTENSION CAD-S/P PTCA-STENT PLAN CARDIOLOGY EVALUATION LABS IN AM HD TOMORROW WILL MONITOR FOR RENAL RECOVERY GISSELLE VILLASENOR MD Sep 02, 2021 10:31
[2021-09-02] MEDS ORDERED: ENOXAPARIN 30 MG/0.3 ML SYRINGE. SQ SCH (11:00)
[2021-09-02] MEDS: CLOPIDOGREL BISULFATE 75 MG TABLET PO SCH (11:35)
[2021-09-02] MEDS: ATORVASTATIN CALCIUM 40 MG TABLET. PO SCH (11:35)
[2021-09-02] MEDS: OXYBUTYNIN CHLORIDE 5 MG TABLET PO SCH ×2 (11:35→21:24)
[2021-09-02] MEDS: ASPIRIN CHEWABLE 81 MG TABLET. PO SCH (11:35)
--- NOTE | 2021-09-02 15:19 | NUR ---
SS following for discharge planning. SS reviewed pt chart and discussed with pt RN. Pt is from home with spouse and is currently on room air. COVID19 negative. Cardiology and Nephrology consulted. Pt has outpatient dialysis at [facility], ; fax [phone], Wednesday, Wednesday, and Wednesday. Order received for [facility], ; fax [phone]. Order and clinical phoned and faxed to [facility]. Hugo from [facility] met with pt and spouse in room. Discharge plan is currently to home when medically ready for discharge. SS will continue to follow for discharge planning.
[2021-09-02] MEDS ORDERED: HEPARIN for SUB-Q USE 5,000 UNIT/ML VIAL. SQ SCH (21:00)
--- NOTE | 2021-09-02 21:50 | NUR ---
Patient complaining of itchy eyes, bilat eye sclera/lids are red. Paged Dr Cervantes notified of above, Dr Cervantes ordered Zaditor one drop each eye BID. Patient notified of eye drop. See orders.
[2021-09-02] MEDS: KETOTIFEN FUMARATE OPHTH SOLUTION BOTTLE. OU SCH (22:00)
--- NOTE | 2021-09-02 23:00 | NUR ---
Patient complained of itchy eyes. After giving patient eye drops; problem continued to persist. Paged Dr. Aviles. Dr. Aviles responded, I requested medication for itchy eyes because eyes drops did not work.
--- NOTE | 2021-09-02 23:01 | NUR ---
(Completion of note from 2299) Dr. Aviles order Benadryl 25MG PO PRN Q4Hrs. Patient notified and educated on medication. See orders.
[2021-09-02] MEDS: diphenhydrAMINE HCL 25 MG CAPSULE PO PRN (23:17)
[2021-09-03] VITALS: BP 130/68
[2021-09-03 01:54] LABS: BILIRUBIN,URINE NEGATIVE (NEG); CLARITY,URINE CLOUDY; COLOR,URINE YELLOW; NITRITE,URINE NEGATIVE (NEG); PH,URINE 5.5 (<5.0-8.0); PROTEIN,URINE >=300 mg/dL (NEG-TRACE); UROBILINOGEN,URINE 0.2 mg/dL (0.2 mg/dL)
[2021-09-03 02:03] LABS: RBC,URINE RARE /HPF (0-2)
[2021-09-03 02:04] LABS: AMORPHOUS SEDIMENT,UR PRESENT /HPF; BACTERIA,URINE FEW /HPF (0-FEW); GRANULAR CASTS,URINE FEW /HPF; HYALINE CASTS, URINE FEW /HPF; YEAST,URINE PRESENT /HPF
[2021-09-03 04:00] VITALS: BP 105/41
[2021-09-03 05:02] LABS: BASO # 0.1 x10^3/uL (0.0-0.2); BASO % 1 % (0-3); EOS # 0.3 x10^3/uL (0.0-0.7); EOS % 6 % (0-3); HEMATOCRIT 24.8 % (39.0-53.0); HEMOGLOBIN 8.5 g/dL (13.0-17.5); LYMPH # 0.9 x10^3/uL (1.0-4.8); LYMPH % 18 % (24-48); MEAN CORPUSCULAR HEMOGLOBIN 32 pg (25-35); MEAN CORPUSCULAR HGB CONC 34 g/dL (31-37); MEAN CORPUSCULAR VOLUME 94 fL (79-100); MONO # 0.4 x10^3/uL (0.0-1.1); MONO % 8 % (0-9); NEUT # 3.4 x10^3/uL (1.8-7.7); NEUT % 67 % (31-73); PLATELET COUNT 173 x10^3/uL (140-400); RED BLOOD COUNT 2.64 x10^6/uL (4.30-5.70); WHITE BLOOD COUNT 5.1 x10^3/uL (4.0-11.0)
[2021-09-03 05:29] LABS: CREATININE 4.1 mg/dL (0.7-1.3); GFR 14.3; POTASSIUM 3.4 mmol/L (3.5-5.1); TOTAL BILIRUBIN 0.2 mg/dL (0.2-1.0)
[2021-09-03] MEDS: diphenhydrAMINE HCL 25 MG CAPSULE PO PRN ×2 (05:40→12:06)
[2021-09-03 07:28] VITALS: BP 106/61
[2021-09-03] MEDS: CLOPIDOGREL BISULFATE 75 MG TABLET PO SCH (08:00)
[2021-09-03] MEDS: KETOTIFEN FUMARATE OPHTH SOLUTION BOTTLE. OU SCH (09:00)
[2021-09-03] MEDS ORDERED: METOPROLOL SUCC 24HR ER 25 MG TAB.ER.24H. PO SCH (09:00)
[2021-09-03] MEDS ORDERED: ALBUMIN HUMAN 25% 200 ML IV PRN (09:00)
[2021-09-03] MEDS: OXYBUTYNIN CHLORIDE 5 MG TABLET PO SCH (09:00)
[2021-09-03] MEDS ORDERED: IV NORMAL SALINE 1000ML BAG 1,000 ML IV PRN ×2 (09:00)
[2021-09-03] MEDS ORDERED: DIALYSIS PATIENT. MC PRN ×2 (09:00)
[2021-09-03] MEDS: ASPIRIN CHEWABLE 81 MG TABLET. PO SCH (09:00)
[2021-09-03] MEDS: ATORVASTATIN CALCIUM 40 MG TABLET. PO SCH (09:00)
[2021-09-03] MEDS ORDERED: diphenhydrAMINE 50 MG/ML VIAL IV PRN (09:00)
--- NOTE | 2021-09-03 10:25 | PDOC ---
DIANNA CHAPA CITLALI 09/03/21 1025: CARDIO Progress Notes Date and Time Date of Service 09/03/21 Time of Evaluation 1020 Vitals Vitals Vital Signs Date Time Temp Pulse Resp B/P (MAP) Pulse Ox O2 Delivery O2 Flow Rate FiO2 09/03/21 07:59 Room Air 09/03/21 07:28 97.3 74 17 106/61 (76) 99 97.3 Weight Weight [ ] Input and Output Intake and Output Intake and Output 09/03/21 07:00 Intake Total 0 ml Output Total 225 ml Balance -225 ml Intake Oral 0 ml Output Urine Total 225 ml # Voids 1 Laboratory Labs Laboratory Tests Test 09/03/21 01:45 09/03/21 04:20 Urine Collection Type Unknown Urine Color Yellow Urine Clarity Cloudy Urine pH 5.5 (<5.0-8.0) Urine Specific [place] 1.015 (1.000-1.030) Urine Protein >=300 mg/dL (NEG-TRACE) Urine Glucose (UA) 100 mg/dL (NEG) Urine Ketones (Stick) Negative mg/dL (NEG) Urine Blood Negative (NEG) Urine Nitrite Negative (NEG) Urine Bilirubin Negative (NEG) Urine Urobilinogen Dipstick 0.2 mg/dL (0.2 mg/dL) Urine Leukocyte Esterase Small (NEG) Urine RBC Rare /HPF (0-2) Urine WBC 5-10 /HPF (0-4) Urine Squamous Epithelial Cells Few /LPF Urine Amorphous Sediment Present /HPF Urine Bacteria Few /HPF (0-FEW) Urine Hyaline Casts Few /HPF Urine Granular Casts Few /HPF Urine Mucus Mod /LPF Urine Yeast Present /HPF White Blood Count 5.1 x10^3/uL (4.0-11.0) Red Blood Count 2.64 x10^6/uL (4.30-5.70) Hemoglobin 8.5 g/dL (13.0-17.5) Hematocrit 24.8 % (39.0-53.0) Mean Corpuscular Volume 94 fL (79-100) Mean Corpuscular Hemoglobin 32 pg (25-35) Mean Corpuscular Hemoglobin Concent 34 g/dL (31-37) Red Cell Distribution Width 14.0 % (11.5-14.5) Platelet Count 173 x10^3/uL (140-400) Neutrophils (%) (Auto) 67 % (31-73) Lymphocytes (%) (Auto) 18 % (24-48) Monocytes (%) (Auto) 8 % (0-9) Eosinophils (%) (Auto) 6 % (0-3) Basophils (%) (Auto) 1 % (0-3) Neutrophils # (Auto) 3.4 x10^3/uL (1.8-7.7) Lymphocytes # (Auto) 0.9 x10^3/uL (1.0-4.8) Monocytes # (Auto) 0.4 x10^3/uL (0.0-1.1) Eosinophils # (Auto) 0.3 x10^3/uL (0.0-0.7) Basophils # (Auto) 0.1 x10^3/uL (0.0-0.2) Sodium Level 138 mmol/L (136-145) Potassium Level 3.4 mmol/L (3.5-5.1) Chloride Level 100 mmol/L (98-107) Carbon Dioxide Level 29 mmol/L (21-32) Anion Gap 9 (6-14) Blood Urea Nitrogen 39 mg/dL (8-26) Creatinine 4.1 mg/dL (0.7-1.3) Estimated GFR (Cockcroft-Gault) 14.3 BUN/Creatinine Ratio 10 (6-20) Glucose Level 190 mg/dL (70-99) Calcium Level 8.0 mg/dL (8.5-10.1) Total Bilirubin 0.2 mg/dL (0.2-1.0) Aspartate Amino Transf (AST/SGOT) 11 U/L (15-37) Alanine Aminotransferase (ALT/SGPT) 18 U/L (16-63) Alkaline Phosphatase 58 U/L (46-116) Total Protein 6.0 g/dL (6.4-8.2) Albumin 3.0 g/dL (3.4-5.0) Albumin/Globulin Ratio 1.0 (1.0-1.7) Physical Exam HEENT: Neck Supple W Full Motion Chest: Symmetric Heart: S1S2, RRR, no gallops, no murmurs Assessment Assessment 1. Near syncope; most probably secondary to hypotension 2. Hypotension; now adequate. 3. CAD s/p CABG 2016 and PCI/stent 2 weeks ago at [facility]. Follows with Dr. Coker 4. Acute on chronic systolic CHF; appears compensated 5. Cardiomyopathy; LVEF reportedly 20-25% 6. Hyperlipidemia; statin 7. Diabetes, II 8. ESRD recently initiated on HD 9. LBBB Recommendations Secondary prevention Continue low-dose Toprol No ACEi/ARB with low-end BP LifeVest to be fit today. 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 Coker upon discharge Justicifation of Admission Dx: Justifications for Admission: Justification of Admission Dx: Yes Chronic Renal Failure: Hemodynamic Instability CASPER DAMIAN MD 09/03/21 1548: DIANNA CHAPA APRN Sep 03, 2021 10:25 CASPER DAMIAN MD Sep 03, 2021 15:48
--- NOTE | 2021-09-03 10:43 | PDOC ---
Renal-Progress Notes Subjective Notes Notes NO NEW COMPLAINTS History of Present Illness Hx of present illness STABLE Vitals Vitals Vital Signs Date Time Temp Pulse Resp B/P (MAP) Pulse Ox O2 Delivery O2 Flow Rate FiO2 09/03/21 07:59 Room Air 09/03/21 07:28 97.3 74 17 106/61 (76) 99 97.3 Weight Weight [ ] I.O. Intake and Output Intake and Output 09/03/21 07:00 Intake Total 0 ml Output Total 225 ml Balance -225 ml Intake Oral 0 ml Output Urine Total 225 ml # Voids 1 Labs Labs Laboratory Tests Test 09/03/21 01:45 09/03/21 04:20 Urine Collection Type Unknown Urine Color Yellow Urine Clarity Cloudy Urine pH 5.5 (<5.0-8.0) Urine Specific [place] 1.015 (1.000-1.030) Urine Protein >=300 mg/dL (NEG-TRACE) Urine Glucose (UA) 100 mg/dL (NEG) Urine Ketones (Stick) Negative mg/dL (NEG) Urine Blood Negative (NEG) Urine Nitrite Negative (NEG) Urine Bilirubin Negative (NEG) Urine Urobilinogen Dipstick 0.2 mg/dL (0.2 mg/dL) Urine Leukocyte Esterase Small (NEG) Urine RBC Rare /HPF (0-2) Urine WBC 5-10 /HPF (0-4) Urine Squamous Epithelial Cells Few /LPF Urine Amorphous Sediment Present /HPF Urine Bacteria Few /HPF (0-FEW) Urine Hyaline Casts Few /HPF Urine Granular Casts Few /HPF Urine Mucus Mod /LPF Urine Yeast Present /HPF White Blood Count 5.1 x10^3/uL (4.0-11.0) Red Blood Count 2.64 x10^6/uL (4.30-5.70) Hemoglobin 8.5 g/dL (13.0-17.5) Hematocrit 24.8 % (39.0-53.0) Mean Corpuscular Volume 94 fL (79-100) Mean Corpuscular Hemoglobin 32 pg (25-35) Mean Corpuscular Hemoglobin Concent 34 g/dL (31-37) Red Cell Distribution Width 14.0 % (11.5-14.5) Platelet Count 173 x10^3/uL (140-400) Neutrophils (%) (Auto) 67 % (31-73) Lymphocytes (%) (Auto) 18 % (24-48) Monocytes (%) (Auto) 8 % (0-9) Eosinophils (%) (Auto) 6 % (0-3) Basophils (%) (Auto) 1 % (0-3) Neutrophils # (Auto) 3.4 x10^3/uL (1.8-7.7) Lymphocytes # (Auto) 0.9 x10^3/uL (1.0-4.8) Monocytes # (Auto) 0.4 x10^3/uL (0.0-1.1) Eosinophils # (Auto) 0.3 x10^3/uL (0.0-0.7) Basophils # (Auto) 0.1 x10^3/uL (0.0-0.2) Sodium Level 138 mmol/L (136-145) Potassium Level 3.4 mmol/L (3.5-5.1) Chloride Level 100 mmol/L (98-107) Carbon Dioxide Level 29 mmol/L (21-32) Anion Gap 9 (6-14) Blood Urea Nitrogen 39 mg/dL (8-26) Creatinine 4.1 mg/dL (0.7-1.3) Estimated GFR (Cockcroft-Gault) 14.3 BUN/Creatinine Ratio 10 (6-20) Glucose Level 190 mg/dL (70-99) Calcium Level 8.0 mg/dL (8.5-10.1) Total Bilirubin 0.2 mg/dL (0.2-1.0) Aspartate Amino Transf (AST/SGOT) 11 U/L (15-37) Alanine Aminotransferase (ALT/SGPT) 18 U/L (16-63) Alkaline Phosphatase 58 U/L (46-116) Total Protein 6.0 g/dL (6.4-8.2) Albumin 3.0 g/dL (3.4-5.0) Albumin/Globulin Ratio 1.0 (1.0-1.7) Review of Systems Constitutional: yes: weakness, alert, oriented Ears/Nose/Throat: Yes: no symptom reported Eyes: Yes: no symptom reported Pulmonary: Yes no symptom reported Cardiovascular: Yes no symptom reported Gastrointestional: Yes: no symptom reported Genitourinary: Yes: no symptom reported Musculoskeletal: Yes: no symptom reported Skin: Yes no symptom reported Psychiatric/Neurological: Yes: no symptom reported Endocrine: Yes: no symptom reported Physical Exam General Appearance: no apparent distress Skin: warm Respiratory: bilateral CTA Heart: S1S2 Abdomen: soft, bowel sounds present Genitourinary: bladder flat Extremities: pulses present Neurology: alert, oriented Assessment Assessment IMP ANGELIKA-ATN-ON HD MWF VIA RIGHT IJ TDC SYNCOPE HYPOTENSION CAD-S/P PTCA-STENT PLAN CARDIOLOGY EVALUATION HD TODAY UF MINIMUM WILL MONITOR FOR RENAL RECOVERY GISSELLE VILLASENOR MD Sep 03, 2021 10:43
[2021-09-03 11:42] VITALS: BP 129/64
[2021-09-03] MEDS ORDERED: METO-239 PO (12:25)
--- NOTE | 2021-09-03 12:27 | SNU/HH DC ---
DISCHARGE WITH HOME HEALTH DISCHARGE INFORMATION: Discharge Date: Sep 03, 2021 Final Diagnosis: hypotnesion overmedicated acute kidney injury acute sytoclic CHF CAD, recnet IA Problems Medical Problems: (1) Cardiogenic shock Status: Acute Condition on Discharge: Stable CODE STATUS: Code Status: Full HOME HEALTH: Face to Face: I certify this patient is under my care and that I had a face to face encounter that meets the physician face to face encounter requirements with this patient on 09/03 ]. Medical Complications: CHF, Other (CAD and ESRD) Mcfp For: Assess Cardiopulm Status, Medication Management RN For Eval/Treatment: Yes Physical Therapy For: Evalulation/Treatment Occupational Therapy For: Evaluation/Treatment Pt Meets Homebound Status: Unsteady balance w/ amb,, Psychological condition, Other: (eval cardiac, check BP) POST DISCHARGE ORDERS: Activity Instructions for Disc: Resume previous activity, Activity as tolerated Weight Bearing Status after Di: As tolerated DIET AFTER DISCHARGE: Cardiac FOLLOW-UP: Follow up with: cardiology at [facility], [facility] TREATMENT/EQUIPMENT ORDERS: Adaptive Equipment Issued: None CERTIFICATION STATEMENT: Certification Statement: Certification Statement: Based on the above finding, I certify that this patient is confined to the home and needs intermittent fci care, physical therapy and/or speech therapy, or continues to need occupational therapy.~ This patient is under my care, and I have initiated the establishment of the plan of care.~ This patient will be followed by myself or a community physician who will periodically review the plan of care. Home Meds Active Scripts Metoprolol Succinate (METOPROLOL SUCCINATE ( XL )) 25 Mg Tab.er.24h, 25 MG PO DAILY for htn, #30 TAB.SR Prov:FEDERICA GA MD 09/03/21 Reported Medications Bumetanide (BUMETANIDE) 1 Mg Tablet, 1 MG PO BID, TAB 09/02/21 Clopidogrel Bisulfate (PLAVIX) 75 Mg Tablet, 75 MG PO DAILY for TO PREVENT BLOOD CLOTS, #30 TAB 0 Refills 09/02/21 Atorvastatin Calcium (ATORVASTATIN CALCIUM) 40 Mg Tablet, 1 TAB PO DAILY for lipids 09/02/21 Oxybutynin Chloride (OXYBUTYNIN CHLORIDE) 5 Mg Tablet, 1 TAB PO BID for bladder 09/02/21 Aspirin (ASPIRIN) 81 Mg Tab.chew, 1 TAB PO DAILY for hyeart, #30 TAB 3 Refills 09/02/21 Discontinued Reported Medications Isosorbide Dinitrate (ISOSORBIDE DINITRATE) 10 Mg Tablet, 1 TAB PO TID for bp 09/02/21 Hydralazine Hcl (HYDRALAZINE HCL) 25 Mg Tablet, 1 TAB PO TID for bp 09/02/21 Carvedilol (Carvedilol) 12.5 Mg Tablet, 1 TAB PO BID for heart 09/02/21 Carvedilol (Carvedilol) 3.125 Mg Tablet, 1 TAB PO BID for heart 09/02/21 Furosemide (FUROSEMIDE) 20 Mg Tablet, 1 TAB PO DAILY for heart 09/02/21 Carvedilol (Carvedilol) 6.25 Mg Tablet, 1 TAB PO BID for heart 09/02/21 FEDERICA GA MD Sep 03, 2021 12:27
--- NOTE | 2021-09-03 12:51 | PDOC3 ---
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 considered an event monitor, may consider Acute renal failure, recent injury, no end stage, HD done today weaknes,s, debility, Problems Medical Problems: (1) Cardiogenic shock Status: Acute Brief Hospital Course Allergies Allergies Coded Allergies Type Severity Reaction Last Updated Verified hydrocodone Allergy Intermediate 09/02/21 Yes oxycodone Allergy Intermediate 09/02/21 Yes Vital Signs Vital Signs Date Time Temp Pulse Resp B/P (MAP) Pulse Ox O2 Delivery O2 Flow Rate FiO2 09/03/21 11:42 98.3 63 20 129/64 (85) 100 Room Air 98.3 Lab Results Laboratory Tests Test 09/02/21 00:30 09/02/21 00:58 09/02/21 05:50 09/02/21 08:55 White Blood Count 6.7 x10^3/uL (4.0-11.0) Red Blood Count 2.97 x10^6/uL (4.30-5.70) Hemoglobin 9.5 g/dL (13.0-17.5) Hematocrit 27.9 % (39.0-53.0) Mean Corpuscular Volume 94 fL (79-100) Mean Corpuscular Hemoglobin 32 pg (25-35) Mean Corpuscular Hemoglobin Concent 34 g/dL (31-37) Red Cell Distribution Width 14.2 % (11.5-14.5) Platelet Count 209 x10^3/uL (140-400) Neutrophils (%) (Auto) 79 % (31-73) Lymphocytes (%) (Auto) 9 % (24-48) Monocytes (%) (Auto) 7 % (0-9) Eosinophils (%) (Auto) 4 % (0-3) Basophils (%) (Auto) 1 % (0-3) Neutrophils # (Auto) 5.3 x10^3/uL (1.8-7.7) Lymphocytes # (Auto) 0.6 x10^3/uL (1.0-4.8) Monocytes # (Auto) 0.5 x10^3/uL (0.0-1.1) Eosinophils # (Auto) 0.2 x10^3/uL (0.0-0.7) Basophils # (Auto) 0.1 x10^3/uL (0.0-0.2) Prothrombin Time 13.5 SEC (11.7-14.0) Prothromb Time International Ratio 1.0 (0.8-1.1) Sodium Level 137 mmol/L (136-145) Potassium Level 3.8 mmol/L (3.5-5.1) Chloride Level 97 mmol/L (98-107) Carbon Dioxide Level 28 mmol/L (21-32) Anion Gap 12 (6-14) Blood Urea Nitrogen 27 mg/dL (8-26) Creatinine 2.7 mg/dL (0.7-1.3) Estimated GFR (Cockcroft-Gault) 23.1 BUN/Creatinine Ratio 10 (6-20) Glucose Level 289 mg/dL (70-99) Calcium Level 8.7 mg/dL (8.5-10.1) Phosphorus Level 3.0 mg/dL (2.6-4.7) Magnesium Level 2.1 mg/dL (1.8-2.4) Total Bilirubin 0.3 mg/dL (0.2-1.0) Aspartate Amino Transf (AST/SGOT) 11 U/L (15-37) Alanine Aminotransferase (ALT/SGPT) 19 U/L (16-63) Alkaline Phosphatase 65 U/L (46-116) Troponin I Quantitative 0.024 ng/mL (0.000-0.055) 0.017 ng/mL (0.000-0.055) 0.017 ng/mL (0.000-0.055) VG-Nwk-S-Type Natriuretic Peptide > 96178 pg/mL (0-449) Total Protein 6.7 g/dL (6.4-8.2) Albumin 3.3 g/dL (3.4-5.0) Albumin/Globulin Ratio 1.0 (1.0-1.7) SARS-CoV-2 RNA (FER) Negative (Negative) SARS-CoV-2 Antigen (Rapid) Negative (NEGATIVE) Lactic Acid Level 0.8 mmol/L (0.4-2.0) Test 09/03/21 01:45 09/03/21 04:20 Urine Collection Type Unknown Urine Color Yellow Urine Clarity Cloudy Urine pH 5.5 (<5.0-8.0) Urine Specific [place] 1.015 (1.000-1.030) Urine Protein >=300 mg/dL (NEG-TRACE) Urine Glucose (UA) 100 mg/dL (NEG) Urine Ketones (Stick) Negative mg/dL (NEG) Urine Blood Negative (NEG) Urine Nitrite Negative (NEG) Urine Bilirubin Negative (NEG) Urine Urobilinogen Dipstick 0.2 mg/dL (0.2 mg/dL) Urine Leukocyte Esterase Small (NEG) Urine RBC Rare /HPF (0-2) Urine WBC 5-10 /HPF (0-4) Urine Squamous Epithelial Cells Few /LPF Urine Amorphous Sediment Present /HPF Urine Bacteria Few /HPF (0-FEW) Urine Hyaline Casts Few /HPF Urine Granular Casts Few /HPF Urine Mucus Mod /LPF Urine Yeast Present /HPF White Blood Count 5.1 x10^3/uL (4.0-11.0) Red Blood Count 2.64 x10^6/uL (4.30-5.70) Hemoglobin 8.5 g/dL (13.0-17.5) Hematocrit 24.8 % (39.0-53.0) Mean Corpuscular Volume 94 fL (79-100) Mean Corpuscular Hemoglobin 32 pg (25-35) Mean Corpuscular Hemoglobin Concent 34 g/dL (31-37) Red Cell Distribution Width 14.0 % (11.5-14.5) Platelet Count 173 x10^3/uL (140-400) Neutrophils (%) (Auto) 67 % (31-73) Lymphocytes (%) (Auto) 18 % (24-48) Monocytes (%) (Auto) 8 % (0-9) Eosinophils (%) (Auto) 6 % (0-3) Basophils (%) (Auto) 1 % (0-3) Neutrophils # (Auto) 3.4 x10^3/uL (1.8-7.7) Lymphocytes # (Auto) 0.9 x10^3/uL (1.0-4.8) Monocytes # (Auto) 0.4 x10^3/uL (0.0-1.1) Eosinophils # (Auto) 0.3 x10^3/uL (0.0-0.7) Basophils # (Auto) 0.1 x10^3/uL (0.0-0.2) Sodium Level 138 mmol/L (136-145) Potassium Level 3.4 mmol/L (3.5-5.1) Chloride Level 100 mmol/L (98-107) Carbon Dioxide Level 29 mmol/L (21-32) Anion Gap 9 (6-14) Blood Urea Nitrogen 39 mg/dL (8-26) Creatinine 4.1 mg/dL (0.7-1.3) Estimated GFR (Cockcroft-Gault) 14.3 BUN/Creatinine Ratio 10 (6-20) Glucose Level 190 mg/dL (70-99) Calcium Level 8.0 mg/dL (8.5-10.1) Total Bilirubin 0.2 mg/dL (0.2-1.0) Aspartate Amino Transf (AST/SGOT) 11 U/L (15-37) Alanine Aminotransferase (ALT/SGPT) 18 U/L (16-63) Alkaline Phosphatase 58 U/L (46-116) Total Protein 6.0 g/dL (6.4-8.2) Albumin 3.0 g/dL (3.4-5.0) Albumin/Globulin Ratio 1.0 (1.0-1.7) Laboratory Tests Test 09/03/21 01:45 09/03/21 04:20 Urine Collection Type Unknown Urine Color Yellow Urine Clarity Cloudy Urine pH 5.5 (<5.0-8.0) Urine Specific [place] 1.015 (1.000-1.030) Urine Protein >=300 mg/dL (NEG-TRACE) Urine Glucose (UA) 100 mg/dL (NEG) Urine Ketones (Stick) Negative mg/dL (NEG) Urine Blood Negative (NEG) Urine Nitrite Negative (NEG) Urine Bilirubin Negative (NEG) Urine Urobilinogen Dipstick 0.2 mg/dL (0.2 mg/dL) Urine Leukocyte Esterase Small (NEG) Urine RBC Rare /HPF (0-2) Urine WBC 5-10 /HPF (0-4) Urine Squamous Epithelial Cells Few /LPF Urine Amorphous Sediment Present /HPF Urine Bacteria Few /HPF (0-FEW) Urine Hyaline Casts Few /HPF Urine Granular Casts Few /HPF Urine Mucus Mod /LPF Urine Yeast Present /HPF White Blood Count 5.1 x10^3/uL (4.0-11.0) Red Blood Count 2.64 x10^6/uL (4.30-5.70) Hemoglobin 8.5 g/dL (13.0-17.5) Hematocrit 24.8 % (39.0-53.0) Mean Corpuscular Volume 94 fL (79-100) Mean Corpuscular Hemoglobin 32 pg (25-35) Mean Corpuscular Hemoglobin Concent 34 g/dL (31-37) Red Cell Distribution Width 14.0 % (11.5-14.5) Platelet Count 173 x10^3/uL (140-400) Neutrophils (%) (Auto) 67 % (31-73) Lymphocytes (%) (Auto) 18 % (24-48) Monocytes (%) (Auto) 8 % (0-9) Eosinophils (%) (Auto) 6 % (0-3) Basophils (%) (Auto) 1 % (0-3) Neutrophils # (Auto) 3.4 x10^3/uL (1.8-7.7) Lymphocytes # (Auto) 0.9 x10^3/uL (1.0-4.8) Monocytes # (Auto) 0.4 x10^3/uL (0.0-1.1) Eosinophils # (Auto) 0.3 x10^3/uL (0.0-0.7) Basophils # (Auto) 0.1 x10^3/uL (0.0-0.2) Sodium Level 138 mmol/L (136-145) Potassium Level 3.4 mmol/L (3.5-5.1) Chloride Level 100 mmol/L (98-107) Carbon Dioxide Level 29 mmol/L (21-32) Anion Gap 9 (6-14) Blood Urea Nitrogen 39 mg/dL (8-26) Creatinine 4.1 mg/dL (0.7-1.3) Estimated GFR (Cockcroft-Gault) 14.3 BUN/Creatinine Ratio 10 (6-20) Glucose Level 190 mg/dL (70-99) Calcium Level 8.0 mg/dL (8.5-10.1) Total Bilirubin 0.2 mg/dL (0.2-1.0) Aspartate Amino Transf (AST/SGOT) 11 U/L (15-37) Alanine Aminotransferase (ALT/SGPT) 18 U/L (16-63) Alkaline Phosphatase 58 U/L (46-116) Total Protein 6.0 g/dL (6.4-8.2) Albumin 3.0 g/dL (3.4-5.0) Albumin/Globulin Ratio 1.0 (1.0-1.7) Brief Hospital Course Mr. Flores is a 76 old male, admit with acute hypotension, symptomatic, weaknes, fall at home, had hours of prodrome and BP was low, just left [facility] after WA and stent, wtih new HD for ANGELIKA, and 3 BP meds, BP low here, req dobutamien in ICU on admit better with less meds, 3 meds changed to one here for DC< CV And renal conslut follwed Discharge Information Condition at Discharge: Improved Follow Up: Weeks Disposition/Orders: D/C to Home w/ HH Scheduled Aspirin (Aspirin) 81 Mg Tab.chew, 1 TAB PO DAILY for hyeart, #30 Ref 3 (Reported) Entered as Reported by: KODY ZAMARRIPA on 09/02/21431 Last Action: Continued on 09/02/21833 by FEDERICA GA Atorvastatin Calcium (Atorvastatin Calcium) 40 Mg Tablet, 1 TAB PO DAILY for lipids, (Reported) Entered as Reported by: KODY ZAMARRIPA on 09/02/21434 Last Action: Continued on 09/02/21833 by FEDERICA GA Bumetanide (Bumetanide) 1 Mg Tablet, 1 MG PO BID, (Reported) Entered as Reported by: SHARRI ARMENTA RPH on 09/02/21835 Last Action: New Order on 09/02/21835 by SHARRI ARMENTA RPH Clopidogrel Bisulfate (Plavix) 75 Mg Tablet, 75 MG PO DAILY for TO PREVENT BLOOD CLOTS, #30 Ref 0 (Reported) Entered as Reported by: SHARRI ARMENTA RPH on 09/02/21835 Last Action: New Order on 09/02/21835 by SHARRI ARMENTA RPH Metoprolol Succinate (Metoprolol Succinate ( Xl )) 25 Mg Tab.er.24h, 25 MG PO DAILY for htn, #30 Prescribed by: FEDERICA GA on 09/03/21 1225 Oxybutynin Chloride (Oxybutynin Chloride) 5 Mg Tablet, 1 TAB PO BID for bladder, (Reported) Entered as Reported by: KODY ZAMARRIPA on 09/02/21434 Last Action: Continued on 09/02/21833 by FEDERICA GA Discontinued Medications Carvedilol (Carvedilol) 12.5 Mg Tablet, 1 TAB PO BID for heart, (Reported) Entered as Reported by: KODY ZAMARRIPA on 09/02/21429 Last Action: HELD on 09/02/21833 by FEDERICA GA Carvedilol (Carvedilol) 6.25 Mg Tablet, 1 TAB PO BID for heart, (Reported) Discontinued Reason: D/C Entered as Reported by: KODY ZAMARRIPA on 09/02/21429 Last Action: Discontinued on 09/02/21835 by SHARRI ARMENTA [facility] Carvedilol (Carvedilol) 3.125 Mg Tablet, 1 TAB PO BID for heart, (Reported) Discontinued Reason: D/C Entered as Reported by: KODY ZAMARRIPA on 09/02/21429 Last Action: Discontinued on 09/02/21835 by SHARRI ARMENTA [facility] Furosemide (Furosemide) 20 Mg Tablet, 1 TAB PO DAILY for heart, (Reported) Discontinued Reason: CHANGE Entered as Reported by: KODY ZAMARRIPA on 09/02/21429 Last Action: Discontinued on 09/02/21835 by SHARRI ARMENTA [facility] Hydralazine Hcl (Hydralazine Hcl) 25 Mg Tablet, 1 TAB PO TID for bp, (Reported) Entered as Reported by: KODY ZAMARRIPA on 09/02/21429 Last Action: Continued on 09/02/21833 by FEDERICA GA Isosorbide Dinitrate (Isosorbide Dinitrate) 10 Mg Tablet, 1 TAB PO TID for bp, (Reported) Entered as Reported by: KODY ZAMARRIPA on 09/02/21429 Last Action: Continued on 09/02/21833 by FEDERICA GA Patient Instructions Patient Instructions > 30 min face to face f/u primary and his CV< home helath Justicifation of Admission Dx: Justifications for Admission: Justification of Admission Dx: Yes (ICU) FEDERICA GA MD Sep 03, 2021 12:51
--- NOTE | 2021-09-03 14:42 | NUR ---
Discharge Note: CONNIE ABBASI [facility] Discharge instructions and discharge home medications reviewed with Patient and a copy given. All questions have been answered and understanding verbalized. The following instructions and handouts were given: Education on new medication and life vest were discussed and given to patient. Discontinued lines and drains: 20g R and L forarm removed with tip intact. Patient discharged to home with self care. Patient's spouse drove patient from [facility] facility.
== END 2021-09-03 14:45 | disposition home or self-care (01) | DRG 280 ==
LOC: ER 00:22 → 1 WEST ICU 02:00
PROVIDERS: ADMIT Internal Medicine; ATTEND Internal Medicine
PROC: 5A1D70Z Performance of Urinary Filtration, Intermittent, Less than 6 Hours Per Day (ICD-10-PCS; principal; 2021-09-03)
DX: I13.2 Hypertensive heart and chronic kidney disease with heart failure and with stage 5 chronic kidney disease, or end stage renal disease (principal); I50.23 Acute on chronic systolic (congestive) heart failure; I21.9 Acute myocardial infarction, unspecified; N17.0 Acute kidney failure with tubular necrosis; N18.6 End stage renal disease; R57.0 Cardiogenic shock; I95.9 Hypotension, unspecified; I42.9 Cardiomyopathy, unspecified; E11.22 Type 2 diabetes mellitus with diabetic chronic kidney disease; E78.5 Hyperlipidemia, unspecified; I25.10 Atherosclerotic heart disease of native coronary artery without angina pectoris; I44.7 Left bundle-branch block, unspecified; W18.30XA Fall on same level, unspecified, initial encounter; K21.9 Gastro-esophageal reflux disease without esophagitis; M19.90 Unspecified osteoarthritis, unspecified site; R53.81 Other malaise; Z20.822 Contact with and (suspected) exposure to COVID-19; M47.812 Spondylosis without myelopathy or radiculopathy, cervical region; Z82.49 Family history of ischemic heart disease and other diseases of the circulatory system; Z79.01 Long term (current) use of anticoagulants; Z95.1 Presence of aortocoronary bypass graft; Z95.5 Presence of coronary angioplasty implant and graft; Z99.2 Dependence on renal dialysis; Y93.89 Activity, other specified; Y92.009 Unspecified place in unspecified non-institutional (private) residence as the place of occurrence of the external cause; Y99.8 Other external cause status
CPT/HCPCS: 36415; 70450; 71045; 72125; 80053; 81001; 83605; 83735; 83880; 84100; 84484; 85025; 85610; 87086; 87106; 87426; 93005; 96365; 96366; J1200; J1250; J1644; J1650; J7040; U0003; U0005; 99291-25; G0378; Q0163